=== PATIENT | female | born 2000 | race Caucasian/White ===

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

== ENCOUNTER → 2020-12-25 | Outpatient (CLI) | payer MEDICAID, OTHER ==
[~2020-12-25] MED LIST changes: -RABIES IMMUNE GLOBULIN 150 UNIT/ML 10 ML (HYPERRAB) IM ONE; -RABIES VACCINE HUMAN DIPL CELL 1 ML/2.5 UNITS SYR IM ONE; -RABIES VACCINE HUMAN DIPL CELL 1 ML/2.5 UNITS SYR INJ ONE; -RABIES VACCINE HUMAN DIPL CELL 1 ML/2.5 UNITS SYR ONE; -TETANUS,DIPTH,PERTUSS P/F (BOOSTRIX) 0.5 ML VIAL IM ONE
--- NOTE | 2020-12-25 14:36 | Diagnostic Imaging Report ---
EXAMINATION: Magnetic resonance imaging of the left shoulder without contrast. DATE: December 25, 2020. COMPARISON: None. HISTORY: 20-year-old female, left shoulder pain after injury. TECHNIQUE: Magnetic Resonance Imaging sequences were performed of the shoulder without contrast. FINDINGS: ROTATOR CUFF, LIGAMENTS, TENDONS, AND MUSCLES: The supraspinatus, infraspinatus, teres minor, and subscapularis tendons and muscles are intact. There is normal rotator cuff muscle bulk and signal. LONG HEAD OF BICEPS: The biceps labral attachment and long head of the biceps tendon is intact. The long head of the biceps tendon is normally positioned within the bicipital groove. GLENOHUMERAL JOINT: The humeral head is well positioned relative to the glenoid. The labrum is grossly intact. There is no identified paralabral cyst. The articular cartilage is grossly intact. There is no joint effusion. ACROMIOCLAVICULAR JOINT: The acromioclavicular joint is normally aligned. The coracoclavicular and coracoacromial ligaments are intact. There are no degenerative changes of the acromioclavicular joint. BONE: The bones all have normal configuration. The bone marrow signal is within normal limits. Specifically, negative for fracture, osteomyelitis, osteonecrosis, or marrow replacing process. BURSAE AND SOFT TISSUES: The bursae and soft tissue surrounding the shoulder are unremarkable. IMPRESSION: 1. Unremarkable MRI of the left shoulder. Dictated by: Dictated on workstation # [id number]
== END ==
LOC: RAD 11:00
PROVIDERS: ATTEND Family Medicine
DX: M25.512 Pain in left shoulder (principal)
CPT/HCPCS: 73221

== ENCOUNTER 2021-12-23 07:11 | Emergency (ER) | payer OTHER ==
[~2021-12-23] VITALS: Ht 160 cm; Wt 52.0 kg
[2021-12-23] MEDS ORDERED: LACTATED RINGERS 1,000 ML IV ONE (07:45)
[2021-12-23 07:48] LABS: BILIRUBIN,URINE NEGATIVE (NEGATIVE); CLARITY,URINE CLEAR; COLOR,URINE YELLOW; GLUCOSE, URINE (UA) NEGATIVE (NEGATIVE); KETONES,URINE NEGATIVE (NEGATIVE); LEUKOCYTE ESTERASE ,URINE 1+ (NEGATIVE); NITRITE,URINE NEGATIVE (NEGATIVE); PH,URINE 7.5 (5-9); PROTEIN,URINE 2+ (NEGATIVE)
--- NOTE | 2021-12-23 07:49 | ED Abdominal Pain ---
General Chief Complaint: Abdominal/GI Problems Stated Complaint: RIGHT SIDE PAIN Nursing Triage Note: PT CO OF R FLANK PAIN 6\\10. PT IS APPROX 16 WEEKS PER ULTRASOUND. PT HAS SOME NAUSEA. PT WAS + FOR MONO LAST WEEK BUT IS FEELING BETTER. Source of Information: Patient History of Present Illness Date Seen by Provider: Dec 23, 2021 Time Seen by Provider: 07:37 Initial Comments PT ARRIVES VIA POV FROM HOME C/O RIGHT SIDED ABDOMINAL PAIN AND RIGHT FLANK PAIN SINCE LAST NIGHT--PAIN IS WORST IN RIGHT FLANK AREA PAIN IS CONSTANT, RATES PAIN 6/10 WORSE WITH ANY MOVEMENT. NO INJURY OR UNUSUAL ACTIVITY HAS SOME PAIN/BURNING ON URINATION STATES URINE HAS BEEN VERY DARK--STATS "I DRINKS TONS AND TONS OF WATER" + NAUSEA, NO VOMITING NORMAL BM NO FEVER/SWEATS/CHILLS PT TESTED POSITIVE FOR MONO LAST THURSDAY AT [facility]. COVID TEST WAS NEGATIVE. PT IS 16 WEEKS HAD SEEN AN OB DR AT [facility], BUT IS PLANNING ON ESTABLISHING WITH DR. ASTORGA LOCALLY PT IS AB0 NO PROBLEMS WITH THIS . NO VAGINAL BLEEDING OR DISCHARGE PT HAS HAD PRIOR CHOLECYSTECTOMY PT STATES SHE HAS AN "OVERACTIVE THYROID"--"I CAN'T GAIN WEIGHT"--AND TAKES LEVOTHYROXINE. PCP: DR. SUMAYA CONTRERAS Allergies and Home Medications Allergies Coded Allergies: medroxyprogesterone (Verified Allergy, Unknown, 12/23/21) Penicillins (Verified Adverse Reaction, Mild, 02/17/12) Patient Home Medication List Trimethoprim/Sulfamethoxazole (Bactrim Ds) 1 Ea Tablet, 1 EA PO BID, (Reported) Entered as Reported by: ESTUARDO COX on 02/17/12 1640 [Naproxen] , (Reported) Entered as Reported by: ESTUARDO COX on 02/17/12 1638 Review of Systems Review of Systems Constitutional: no symptoms reported EENTM: See HPI Respiratory: No Symptoms Reported Cardiovascular: No Symptoms Reported Gastrointestinal: See HPI Genitourinary: See HPI Musculoskeletal: see HPI Skin: no symptoms reported Psychiatric/Neurological: No Symptoms Reported Endocrine: See HPI Hematologic/Lymphatic: No Symptoms Reported Past Iszvvbe-Iezfkz-Wksuax Hx Past Medical History Surgeries: Yes Gallbladder Respiratory: No Cardiac: No Neurological: No : Yes Genitourinary: No Gastrointestinal: Yes (S/P ERNESTINE) Gall Bladder Disease Musculoskeletal: No Endocrine: Yes (STATES SHE TAKES LEVOTHYROXIN FOR "OVERACTIVE THYROID" ) HEENT: No Cancer: No Psychosocial: Yes Depression Integumentary: No Blood Disorders: No Physical Exam Vital Signs Vital Signs - First Documented 12/23/21 07:30 Temp 36.0 Pulse 95 Resp 18 B/P (MAP) 99/67 (78) Pulse Ox 99 Capillary Refill : Less Than 3 Seconds Height/Weight/BMI Height: 5'4.00" Weight: 102lbs. 0.0oz. [id number]; 20.00 BMI Method:Stated General Appearance: no apparent distress, thin Respiratory: normal breath sounds, no respiratory distress, no accessory muscle use Cardiovascular: regular rate, rhythm, no murmur Gastrointestinal: soft, other (FUNDUS 4 FB'S BELOW UMBILICUS. MODERATE DIFFUSE RIGHT SIDED ABDOMINAL TENDERNESS, WITH MARKED RIGHT FLANK TENDERNESS. FUNDUS IS NON-TENDER. ) Extremities: normal inspection, normal capillary refill Back: no vertebral tenderness, CVA tenderness (R) Neurologic/Psychiatric: snout puller II-XII nml as tested, no motor/sensory deficits, alert, normal mood/affect, oriented x 3 Skin: warm/dry, pallor, tattoos/piercings (EXTENSIVE TATTOOS) Progress/Results/Core Measures Results/Orders Lab Results Laboratory Tests Test 12/23/21 07:35 12/23/21 07:45 Range/Units Urine Color YELLOW Urine Clarity CLEAR Urine pH 7.5 5-9 Urine Specific [place] 1.020 1.016-1.022 Urine Protein 2+ H NEGATIVE Urine Glucose (UA) NEGATIVE NEGATIVE Urine Ketones NEGATIVE NEGATIVE Urine Nitrite NEGATIVE NEGATIVE Urine Bilirubin NEGATIVE NEGATIVE Urine Urobilinogen 0.2 < = 1.0 MG/DL Urine Leukocyte Esterase 1+ H NEGATIVE Urine RBC (Auto) 3+ H NEGATIVE Urine RBC 25-50 H /HPF Urine WBC 25-50 H /HPF Urine Squamous Epithelial Cells 0-2 /HPF Urine Crystals NONE /LPF Urine Bacteria LARGE H /HPF Urine Casts NONE /LPF Urine Mucus NEGATIVE /LPF Urine Culture Indicated YES White Blood Count 9.9 4.3-11.0 10^3/uL Red Blood Count 3.87 3.80-5.11 10^6/uL Hemoglobin 12.3 11.5-16.0 g/dL Hematocrit 36 35-52 % Mean Corpuscular Volume 92 80-99 fL Mean Corpuscular Hemoglobin 32 25-34 pg Mean Corpuscular Hemoglobin Concent 35 32-36 g/dL Red Cell Distribution Width 13.2 10.0-14.5 % Platelet Count 232 130-400 10^3/uL Mean Platelet Volume 10.0 9.0-12.2 fL Immature Granulocyte % (Auto) 1 % Neutrophils (%) (Auto) 82 H 42-75 % Lymphocytes (%) (Auto) 11 L 12-44 % Monocytes (%) (Auto) 5 0-12 % Eosinophils (%) (Auto) 1 0-10 % Basophils (%) (Auto) 0 0-10 % Neutrophils # (Auto) 8.2 H 1.8-7.8 10^3/uL Lymphocytes # (Auto) 1.1 1.0-4.0 10^3/uL Monocytes # (Auto) 0.5 0.0-1.0 10^3/uL Eosinophils # (Auto) 0.1 0.0-0.3 10^3/uL Basophils # (Auto) 0.0 0.0-0.1 10^3/uL Immature Granulocyte # (Auto) 0.1 0.0-0.1 10^3/uL Prothrombin Time 13.0 12.2-14.7 SEC INR Comment 0.9 0.8-1.4 Activated Partial Thromboplast Time 28 24-35 SEC Sodium Level 135 135-145 MMOL/L Potassium Level 3.8 3.6-5.0 MMOL/L Chloride Level 105 98-107 MMOL/L Carbon Dioxide Level 21 21-32 MMOL/L Anion Gap 9 5-14 MMOL/L Blood Urea Nitrogen 7 7-18 MG/DL Creatinine 0.63 0.60-1.30 MG/DL Estimat Glomerular Filtration Rate 128 BUN/Creatinine Ratio 11 Glucose Level 85 70-105 MG/DL Calcium Level 8.8 8.5-10.1 MG/DL Corrected Calcium 8.9 8.5-10.1 MG/DL Magnesium Level 1.9 1.6-2.4 MG/DL Total Bilirubin 0.3 0.1-1.0 MG/DL Aspartate Amino Transf (AST/SGOT) 17 5-34 U/L Alanine Aminotransferase (ALT/SGPT) 19 0-55 U/L Alkaline Phosphatase 46 40-136 U/L Total Protein 6.8 6.4-8.2 GM/DL Albumin 3.9 3.2-4.5 GM/DL Amylase Level 66 25-125 U/L Lipase 11 8-78 U/L Free Thyroxine 0.81 0.70-1.48 NG/DL TSH [place] Testing 9.56 H 0.35-4.94 UIU/ML My Orders Orders - CARSON MORA DO Ed Iv/Invasive Line Start (12/23/21 07:37) Ua Culture If Indicated (12/23/21 07:37) Amylase (12/23/21 07:37) Cbc With Automated Diff (12/23/21 07:37) Comprehensive Metabolic Panel (12/23/21 07:37) Lipase (12/23/21 07:37) Magnesium (12/23/21 07:37) Protime With Inr (12/23/21 07:37) Partial Thromboplastin Time (12/23/21 07:37) Ed Iv/Invasive Line Start (12/23/21 07:37) Lactated Ringers (Lr 1000 Ml Iv Solution (12/23/21 07:45) Heart Tones (12/23/21 07:43) Thyroid Analyzer (12/23/21 07:49) Urine Culture (12/23/21 07:35) Us Abdomen Complete [id number] (12/23/21 08:10) Us Ob Preg Late(14-40wks)51985 (12/23/21 08:10) Ceftriaxone 1 Gm Pre-Mix (Rocephin 1 Gm (12/23/21 08:17) Free T4 (Free Thyroxine) (12/23/21 07:45) Medications Given in ED Current Medications Medications Dose Ordered Sig/Ilsa Route Start Time Stop Time Status Last Admin Dose Admin Lactated Ringer's 1,000 ml @ 0 mls/hr Q0M ONCE IV 12/23/21 07:45 12/23/21 07:46 DC 12/23/21 08:20 1,000 MLS/HR Vital Signs/I&O 12/23/21 07:30 Temp 36.0 Pulse 95 Resp 18 B/P (MAP) 99/67 (78) Pulse Ox 99 Blood Pressure Mean: 78 Progress Progress Note : Progress Note FHR 160 GIVEN IV FLUIDS AND ROCEPHIN Diagnostic Imaging Comments ULTRASOUNDS--PER RADIOLOGIST REPORTS AT 0958 ABDOMEN: FINDINGS: Liver is normal in size without focal lesions. There is hepatopetal flow in main portal vein. Gallbladder surgically absent. There are no focal liver lesions. No biliary duct dilatation. Common bile duct measures 3 mm. Pancreas is unremarkable. Spleen is normal in size. Aorta is nonaneurysmal. IVC patent. There is some questionable mild right hydronephrosis. Left kidney is normal. No ascites. IMPRESSION: Questionable mild right hydronephrosis, otherwise unremarkable abdominal ultrasound status post cholecystectomy. OB:FINDINGS: There is a single living intrauterine in transverse presentation with head to maternal left. Biometrics correlate to gestational age of 15 weeks 4 days. There is normal volume amniotic fluid. Placenta is anterior and low-lying. No previa. Heart rate 153 bpm. Cervical length 4.1 cm. IMPRESSION: Single living intrauterine with a sonographically estimated gestational age 15 weeks 4 days and transverse presentation with head to maternal left. Normal heart rate and volume of amniotic fluid. Biometrical measurements are as follows: Biparietal 3.08 cm, age 15 weeks 5 days. Head circumference 11.35 cm, age 15 weeks 4 days. Abdominal circumference 9.16 cm, age 15 weeks 3 days. Femur length 1.79 cm, age 15 weeks 3 days. Sonographic estimate age: 15 weeks 4 days. Sonographic estimated date of delivery: 06/12/2022. Estimated Weight: 122 gm (+/- 18 gm). LMP percentile: 10%. heart rate: 153 beats per minute. number: 1 of 1. Reviewed: Reviewed by Me Departure Impression Primary Impression: Urinary tract infection Additional Impression: 16 weeks gestation of Disposition: 01 HOME, SELF-CARE Condition: Stable Departure-Patient Inst. Decision time for Depature: 09:59 Referrals: HILLARY ASTORGA CHAD C MD (PCP/Family) Primary Care Physician Patient Instructions: Urinary Tract Infections in Add. Discharge Instructions: LOTS OF CLEAR LIQUIDS TYLENOL NEEDED FOR PAIN OR FEVER FOLLOW UP WITH DR. ASTORGA THIS WEEK FOR FURTHER CARE, RETURN TO ER IF SYMPTOMS WORSEN All discharge instructions reviewed with patient and/or family. Voiced understanding. Scripts Cefdinir (Cefdinir) 300 Mg Capsule 300 MG PO BID, #20 CAP Prov: CARSON MORA DO 12/23/21 CARSON MORA DO Dec 23, 2021 07:49
[2021-12-23 08:02] LABS: BASOPHILS % (AUTO) 0 % (0-10); EOSINOPHILS # (AUTO) 0.1 10^3/uL (0.0-0.3); EOSINOPHILS % (AUTO) 1 % (0-10); HEMATOCRIT 36 % (35-52); HEMOGLOBIN 12.3 g/dL (11.5-16.0); LYMPHOCYTES # (AUTO) 1.1 10^3/uL (1.0-4.0); LYMPHOCYTES % (AUTO) 11 % (12-44); MEAN CORPUSCULAR HEMOGLOBIN 32 pg (25-34); MEAN CORPUSCULAR HGB CONC 35 g/dL (32-36); MEAN CORPUSCULAR VOLUME 92 fL (80-99); MONOCYTES # (AUTO) 0.5 10^3/uL (0.0-1.0); MONOCYTES % (AUTO) 5 % (0-12); NEUTROPHILS # (AUTO) 8.2 10^3/uL (1.8-7.8); NEUTROPHILS % (AUTO) 82 % (42-75); PLATELET COUNT 232 10^3/uL (130-400); WHITE BLOOD COUNT 9.9 10^3/uL (4.3-11.0)
[2021-12-23 08:07] LABS: ALBUMIN 3.9 GM/DL (3.2-4.5); POTASSIUM 3.8 MMOL/L (3.6-5.0)
[2021-12-23 08:08] LABS: CALCIUM 8.8 MG/DL (8.5-10.1)
[2021-12-23 08:09] LABS: BACTERIA,URINE LARGE /HPF; RBC,URINE 25-50 /HPF; SQUAMOUS EPITHELIAL CELL,UR 0-2 /HPF; WBC,URINE 25-50 /HPF
[2021-12-23 08:09] LABS: TOTAL PROTEIN 6.8 GM/DL (6.4-8.2)
[2021-12-23 08:11] LABS: BILIRUBIN,TOTAL 0.3 MG/DL (0.1-1.0)
[2021-12-23 08:13] LABS: CREATININE SERUM 0.63 MG/DL (0.60-1.30)
[2021-12-23 08:16] LABS: MAGNESIUM 1.9 MG/DL (1.6-2.4)
[2021-12-23] MEDS ORDERED: cefTRIAXone 1 GM PRE-MIX 50 ML IV STA (08:17)
[2021-12-23 08:24] LABS: INR 0.9 (0.8-1.4)
[2021-12-23 08:37] LABS: TSH (THYROID ANALYZER) 9.56 UIU/ML (0.35-4.94)
[2021-12-23 09:22] LABS: FREE T4 (FREE THYROXINE) 0.81 NG/DL (0.70-1.48)
--- NOTE | 2021-12-23 09:41 | Diagnostic Imaging Report ---
INDICATION: Abdominal pain TECHNIQUE: Multiple real-time grayscale images were obtained over the gravid uterus. COMPARISON: None FINDINGS: There is a single living intrauterine in transverse presentation with head to maternal left. Biometrics correlate to gestational age of 15 weeks 4 days. There is normal volume amniotic fluid. Placenta is anterior and low-lying. No previa. Heart rate 153 bpm. Cervical length 4.1 cm. IMPRESSION: Single living intrauterine with a sonographically estimated gestational age 15 weeks 4 days and transverse presentation with head to maternal left. Normal heart rate and volume of amniotic fluid. Biometrical measurements are as follows: Biparietal 3.08 cm, age 15 weeks 5 days. Head circumference 11.35 cm, age 15 weeks 4 days. Abdominal circumference 9.16 cm, age 15 weeks 3 days. Femur length 1.79 cm, age 15 weeks 3 days. Sonographic estimate age: 15 weeks 4 days. Sonographic estimated date of delivery: 06/12/2022. Estimated Weight: 122 gm (+/- 18 gm). LMP percentile: 10%. heart rate: 153 beats per minute. number: 1 of 1. Dictated by: Dictated on workstation # [id number]
--- NOTE | 2021-12-23 09:44 | Diagnostic Imaging Report ---
INDICATION: PROCEDURE: Ultrasound abdomen complete. TECHNIQUE: Multiple real-time grayscale images were obtained of the abdomen in various projections. FINDINGS: Liver is normal in size without focal lesions. There is hepatopetal flow in main portal vein. Gallbladder surgically absent. There are no focal liver lesions. No biliary duct dilatation. Common bile duct measures 3 mm. Pancreas is unremarkable. Spleen is normal in size. Aorta is nonaneurysmal. IVC patent. There is some questionable mild right hydronephrosis. Left kidney is normal. No ascites. IMPRESSION: Questionable mild right hydronephrosis, otherwise unremarkable abdominal ultrasound status post cholecystectomy. Dictated by: Dictated on workstation # [id number]
[2021-12-23] MEDS ORDERED: CEFD300C3 PO (10:02)
[2021-12-23 10:34] VITALS: BP 108/64
== END 2021-12-23 10:34 | disposition home or self-care (01) ==
LOC: EDUNIT# 07:11 → ER 07:14
DX: O23.42 Unspecified infection of urinary tract in pregnancy, second trimester (principal); Z90.49 Acquired absence of other specified parts of digestive tract; Z3A.16 16 weeks gestation of pregnancy
CPT/HCPCS: 36415; 76700; 76805; 80053; 81000; 82150; 83690; 83735; 84439; 84443; 85025; 85610; 85730; 87077; 87088

== ENCOUNTER → 2022-01-21 | Outpatient (CLI) | payer OTHER ==
[~2022-01-21] MED LIST changes: +CEFD300C3 PO
--- NOTE | 2022-01-21 11:56 | Diagnostic Imaging Report ---
INDICATION: survey TECHNIQUE: Multiple real-time grayscale images were obtained over the gravid uterus. COMPARISON: None FINDINGS: There is a single live intrauterine fetus currently breech and active. The heart rate of 144 bpm. The placenta is anterior and not low. The amniotic fluid index is normal. Maternal cervical length is 4.3 cm. anatomical survey was normal including structures of kidneys, bladder, stomach, ventricles, brain, four-chamber heart, three-vessel cord, spine and cord insertion. The maternal adnexa was normal. Biometrical measurements are as follows: Biparietal 4.41 cm, age 19 weeks 3 days. Head circumference 16.56 cm, age 19 weeks 2 days. Abdominal circumference 13.52 cm, age 19 weeks 0 days. Femur length 3.03 cm, age 19 weeks 3 days. Sonographic estimate age: 19 weeks 2 days. Sonographic estimated date of delivery: 06/15/2022. Estimated Weight: 278 gm (+/- 41 gm). LMP percentile: 4%. heart rate: 144 beats per minute. number: 1 of 1. IMPRESSION: There is a single live intrauterine fetus currently average biometric measurements for 19 week 2 days with estimated date of delivery of 06/15/2022. No abnormalities were demonstrated. Dictated by: Dictated on workstation # [id number]
== END ==
LOC: RAD 09:43
PROVIDERS: ATTEND Obstetrics & Gynecology
DX: Z34.02 Encounter for supervision of normal first pregnancy, second trimester (principal); Z3A.19 19 weeks gestation of pregnancy
CPT/HCPCS: 76805

== ENCOUNTER 2022-06-07 17:14 | Inpatient (IN) | payer MEDICAID, OTHER ==
[2022-06-07] VITALS (30 sets, daily range): BP systolic 80–142; BP diastolic 52–76
[~2022-06-07] VITALS: Ht 160 cm; Wt 61.0 kg
[2022-06-07] MEDS ORDERED: fentaNYL 2 mcg/ml BUPIVA 0.125 100 ML ONE (17:37)
[2022-06-07] MEDS ORDERED: LACTATED RINGERS 1,000 ML IV ONE ×3 (17:37→19:00)
[2022-06-07 17:43] LABS: BASOPHILS % (AUTO) 0 % (0-10); EOSINOPHILS # (AUTO) 0.1 10^3/uL (0.0-0.3); EOSINOPHILS % (AUTO) 1 % (0-10); HEMATOCRIT 39 % (35-52); HEMOGLOBIN 13.4 g/dL (11.5-16.0); LYMPHOCYTES # (AUTO) 1.7 10^3/uL (1.0-4.0); LYMPHOCYTES % (AUTO) 20 % (12-44); MEAN CORPUSCULAR HEMOGLOBIN 31 pg (25-34); MEAN CORPUSCULAR HGB CONC 34 g/dL (32-36); MEAN CORPUSCULAR VOLUME 92 fL (80-99); MEAN PLATELET VOLUME 11.8 fL (9.0-12.2); MONOCYTES # (AUTO) 0.7 10^3/uL (0.0-1.0); MONOCYTES % (AUTO) 9 % (0-12); NEUTROPHILS # (AUTO) 6.1 10^3/uL (1.8-7.8); NEUTROPHILS % (AUTO) 70 % (42-75); PLATELET COUNT 204 10^3/uL (130-400); WHITE BLOOD COUNT 8.7 10^3/uL (4.3-11.0)
[2022-06-07] MEDS ORDERED: MINERAL OIL 30 ML UDC TOP PRN (17:45)
[2022-06-07] MEDS ORDERED: fentaNYL INJ 100 MCG/2 ML AMP ONE (18:04)
[2022-06-07] MEDS ORDERED: BUPIVACAINE 0.25% 30 ML (SENSORCAINE) VIAL ONE (18:04)
[2022-06-07] MEDS ORDERED: LIDOCAINE 1% INJ 20 ML VIAL ONE (18:08)
[2022-06-07] MEDS ORDERED: OXYTOCIN PRE-MIX DRIP 500 ML IV ONE (18:08)
[2022-06-07] MEDS: D5 LR IV SOLUTION 1,000 ML IV SCH (18:18)
[2022-06-07] MEDS ORDERED: LIDOCAINE PF 2% 5 ML (XYLOCAINE) VIAL ONE (18:35)
[2022-06-07] MEDS ORDERED: NALOXONE 0.4 MG/ML 1 ML (NARCAN) VIAL IV PRN (19:00)
[2022-06-07] MEDS ORDERED: ONDANSETRON 4 MG/2 ML (SDV) Z0FRAN IV PRN (19:00)
[2022-06-07] MEDS ORDERED: fentaNYL 2 mcg/ml BUPIVA 0.125 100 ML EPI SCH (19:00)
[2022-06-07] MEDS ORDERED: fentaNYL INJ 100 MCG/2 ML AMP INJ ONE (19:00)
[2022-06-07] MEDS ORDERED: CATHETER FLUSH 10 ML SYR IV SCH (22:00)
[2022-06-07] MEDS ORDERED: OXYTOCIN PRE-MIX DRIP 500 ML IV SCH (23:15)
[2022-06-07] MEDS ORDERED: BENZOCAINE/MENTHOL (DERMOPLAST) 56 ML CAN TP PRN (23:15)
[2022-06-07] MEDS ORDERED: METHYLERGONOVINE 0.2 MG/ML (METHERGINE) AMP IM PRN (23:15)
[2022-06-07] MEDS ORDERED: WITCH HAZEL(TUCKS) 40 EA JAR TOP PRN (23:15)
[2022-06-07] MEDS ORDERED: TETANUS,DIPTH,PERTUSS P/F (BOOSTRIX) 0.5 ML VIAL IM ONE (23:15)
[2022-06-07] MEDS ORDERED: METHYLERGONOVINE 0.2 MG/ML (METHERGINE) AMP ONE (23:18)
--- NOTE | 2022-06-07 23:25 | History & Physical-OB ---
OB - Chief Complaint & HPI Date/Time Date of Admission: Date of Admission: Jun 07, 2022 at 17:45 Time Seen by a Provider: 22:00 Chief Complaint/History OB-Reason for Admission/Chief: Onset of Labor Hx : 1 Hx Para: 0 Expected Date of Delivery: Jun 12, 2022 Gestational Age in Weeks: 39 Gestational Age in Days: 2 History of Labs MBT O Pos GBS Neg Allergies and Home Medications Allergies Coded Allergies: hydrocodone (Verified Allergy, Unknown, 06/07/22) medroxyprogesterone (Verified Allergy, Unknown, 12/23/21) Penicillins (Verified Adverse Reaction, Mild, 02/17/12) Patient Home Medication List Home Medication List Reviewed: Yes Cefdinir (Cefdinir) 300 Mg Capsule, 300 MG PO BID Prescribed by: CARSON MORA on 12/23/21 1002 Trimethoprim/Sulfamethoxazole (Bactrim Ds) 1 Ea Tablet, 1 EA PO BID, (Reported) Entered as Reported by: ESTUARDO COX on 02/17/12 1640 [Naproxen] , (Reported) Entered as Reported by: ESTUARDO COX on 02/17/12 1638 OB - History Hx of Present Care: Yes Ultrasounds: Normal mid trimester US Obstetrical Complications: None Medical Complications: Other (Hypothyroid) Information Induced Hypertension: No Maternal Gestational Diabetes: No Hemorrhage: No Obstetrical History Hx : 1 Delivery History Hx Blood Disorders: No Patient Past Medical History Hypothyroid Hypothyroid Social History/Family History Alcohol Use: Denies Use Smoking Cessation: Never smoker Immunizations Influenza Vaccine Up-to-Date: No; Not Current OB - Admission Exam Physical Exam Vitals: Vital Signs 06/07/22 06/07/22 06/07/22 17:20 19:16 19:36 Temp 36.2 Pulse 68 Resp 18 B/P (MAP) 113/73 (86) Pulse Ox 100 O2 Delivery Room Air O2 Flow Rate 15.00 HEENT: EOMI Heart: Rhythm Normal Lungs: Clear Abdomen: Non tender Extremities: Normal Reflexes: Normal Cervical Dilatation: 5cm Effacement: 75% Station: -2 Membranes: Intact Heart Rate: 140's Accelerations: Accelerations Present Decelerations: Late Decelarations (x1) Content Creation Manager Variability: Average (6-25) Contractions on Admission: < 5 Minutes Apart Labs Laboratory Tests Test 06/07/22 17:25 Range/Units White Blood Count 8.7 4.3-11.0 10^3/uL Red Blood Count 4.28 3.80-5.11 10^6/uL Hemoglobin 13.4 11.5-16.0 g/dL Hematocrit 39 35-52 % Mean Corpuscular Volume 92 80-99 fL Mean Corpuscular Hemoglobin 31 25-34 pg Mean Corpuscular Hemoglobin Concent 34 32-36 g/dL Red Cell Distribution Width 13.5 10.0-14.5 % Platelet Count 204 130-400 10^3/uL Mean Platelet Volume 11.8 9.0-12.2 fL Immature Granulocyte % (Auto) 1 % Neutrophils (%) (Auto) 70 42-75 % Lymphocytes (%) (Auto) 20 12-44 % Monocytes (%) (Auto) 9 0-12 % Eosinophils (%) (Auto) 1 0-10 % Basophils (%) (Auto) 0 0-10 % Neutrophils # (Auto) 6.1 1.8-7.8 10^3/uL Lymphocytes # (Auto) 1.7 1.0-4.0 10^3/uL Monocytes # (Auto) 0.7 0.0-1.0 10^3/uL Eosinophils # (Auto) 0.1 0.0-0.3 10^3/uL Basophils # (Auto) 0.0 0.0-0.1 10^3/uL Immature Granulocyte # (Auto) 0.1 0.0-0.1 10^3/uL OB - Assessment/Plan/Diagnosis Assessment Assessment: active labor, group B positive strep (neg) Admission Dx Term Labor Admission Status: Inpatient Order (span 2 midnights) Reason for Inpatient Admission: Active Labor Plan Plan: Expectant Management LUIS ENRIQUE MAX III, DO Jun 07, 2022 23:25
[2022-06-07] MEDS ORDERED: METHYLERGONOVINE 0.2 MG/ML (METHERGINE) AMP IM ONE (23:30)
--- NOTE | 2022-06-07 23:32 | OB Labor & Delivery Record ---
L&D History Date of Service Date of Service: Jun 07, 2022 History Expected Date of Delivery: Jun 12, 2022 Gestational Age in Weeks: 39 Hx : 1 Hx Para: 0 Complications Events: Routine care Other Complications Bradycardia in second stage L&D Stage1 Stage One Onset of Labor - Date: Jun 07, 2022 Monitors and Tracing Monitor Mode: External Heart Rate: 125 Station: 0 Halfway Variability: Moderate (11-25) Presentation: Vertex Vital Signs VS - Last 72 Hours, by Label 06/07/22 06/07/22 06/07/22 06/07/22 17:20 19:02 19:04 19:08 Temp 36.2 Pulse 73 65 65 48 Resp 20 18 B/P (MAP) 80/53 (62) 91/53 (66) Pulse Ox 91 100 98 O2 Delivery Room Air Room Air Non Rebreather O2 Flow Rate 15.00 06/07/22 06/07/22 06/07/22 06/07/22 19:10 19:12 19:16 19:22 Pulse 82 60 62 87 Resp 18 18 18 18 B/P (MAP) 90/52 (65) 101/62 (75) 121/73 (89) 115/65 (82) Pulse Ox 100 100 99 100 O2 Delivery Non Rebreather Non Rebreather Non Rebreather Room Air O2 Flow Rate 15.00 15.00 15.00 06/07/22 06/07/22 06/07/22 19:28 19:31 19:36 Pulse 74 75 68 Resp 18 18 18 B/P (MAP) 106/68 (81) 106/67 (80) 113/73 (86) Pulse Ox 100 100 100 O2 Delivery Room Air Room Air Room Air Signs of Distress by FHT Signs of Distress FHT to 80's and 90's in 2nd stage and persisted Rupture of Membranes Amniotic Membrane Rupture Time: 22:15 Amniotic Membrane Fluid Desc.: Clear Induction/Anesthesia Epidural Cath Placement - Time: 1815 L&D Stage2 Monitors and Tracing Monitor Mode: External Heart Rate: 125 Position: Left Occiput Anterior Delivery Type Infant Delivery Method: Low Vacuum Extraction Anterior Shoulder: Right Episiotomy/Perineal Laceration Episiotomy Description: Periurethral Extnsion/lac (Window R Labia minora), Perineal Extension/lac (1st) Sutures Used: Vicryl (4-0) Condition of Infant Delivery Delivery Date & Time: 06/07 2236 1 minute Comment: 8 5 minute Comment: 9 Condition of Infant Condition of Infant: Living Exam: No Observed Abnormalities L&D Stage3 Placenta Delivery Placenta Delivery: Spontaneous Delivery Summary Summary Estimated blood loss (mL): 400 Condition of Delivery Intervention Required Methergine given for 5cm clot x2 LUIS ENRIQUE MAX III, DO Jun 07, 2022 23:32
[2022-06-08] VITALS (7 sets, daily range): BP systolic 82–112; BP diastolic 46–73
[2022-06-08] MEDS: ACETAMINOPHEN 500 MG TAB (TYLENOL) PO SCH ×4 (01:03→20:31)
[2022-06-08] MEDS: IBUPROFEN 600 MG (MOTRIN) TAB PO SCH ×4 (01:04→20:32)
[2022-06-08] MEDS: D5 LR IV SOLUTION 1,000 ML IV SCH (05:52)
[2022-06-08] MEDS ORDERED: CATHETER FLUSH 10 ML SYR IV SCH (06:00)
[2022-06-08 06:38] LABS: BASOPHILS % (AUTO) 0 % (0-10); EOSINOPHILS % (AUTO) 0 % (0-10); HEMATOCRIT 31 % (35-52); HEMOGLOBIN 10.3 g/dL (11.5-16.0); LYMPHOCYTES # (AUTO) 1.2 10^3/uL (1.0-4.0); LYMPHOCYTES % (AUTO) 12 % (12-44); MEAN CORPUSCULAR HEMOGLOBIN 31 pg (25-34); MEAN CORPUSCULAR HGB CONC 34 g/dL (32-36); MEAN CORPUSCULAR VOLUME 92 fL (80-99); MEAN PLATELET VOLUME 11.9 fL (9.0-12.2); MONOCYTES # (AUTO) 0.8 10^3/uL (0.0-1.0); MONOCYTES % (AUTO) 8 % (0-12); NEUTROPHILS % (AUTO) 79 % (42-75); PLATELET COUNT 156 10^3/uL (130-400)
[2022-06-08] MEDS ORDERED: PRENATAL VITAMIN 1 EA TAB PO SCH (07:00)
[2022-06-08] MEDS: DOCUSATE SODIUM 100 MG (COLACE) CAP PO SCH ×2 (08:21→20:32)
--- NOTE | 2022-06-08 10:06 | Postpartum Progress Note ---
Note Note Day # [1] Subjective: Patient is without complaint. Ambulating, voiding. Tolerating a regular diet without nausea or vomiting. Normal lochia. Pain is well controlled with oral pain medications. [Breast] feeding. [] Objective: [VSS Afebrile] Physical Exam: General - Alert and oriented, no apparent distress Abdomen - Soft, appropriately tender to palpation, non-distended, fundus firm at umbilicus Extremities - no edema, negative Laura's bilaterally Assessment: [] post- day # [1], status post [vacuum assisted] vaginal delivery. Recovering well, hemodynamically stable Plan: Routine care. Encourage breast feeding. Encourage ambulation. Plan for discharge [tomorrow] Vitals - Labs Vital Signs - I&O Vital Signs Date Time Temp Pulse Resp B/P (MAP) Pulse Ox O2 Delivery O2 Flow Rate FiO2 06/08/22 08:21 36.9 88 18 102/59 (73) 98 Room Air 06/08/22 05:50 36.3 87 18 82/46 (58) 97 Room Air 06/08/22 01:13 36.7 99 18 109/71 (84) 99 Room Air 06/08/22 00:22 86 18 112/73 (86) Room Air 06/08/22 00:07 76 18 112/68 (83) Room Air 06/07/22 23:52 89 18 112/72 (85) Room Air 06/07/22 23:37 84 18 116/65 (82) Room Air 06/07/22 23:25 84 18 112/61 (78) Room Air 06/07/22 23:22 86 18 120/63 (82) Room Air 06/07/22 23:14 102 18 118/57 (77) Room Air 06/07/22 23:07 91 18 112/63 (79) Room Air 06/07/22 22:52 99 18 113/63 (80) Room Air 06/07/22 22:47 98 18 110/61 (77) Room Air 06/07/22 22:10 97 18 119/71 (87) 99 Room Air 06/07/22 21:55 84 18 114/71 (85) 99 Room Air 06/07/22 21:40 78 18 110/71 (84) 99 Room Air 06/07/22 21:23 36.5 81 18 114/73 (87) 99 Room Air 06/07/22 21:18 79 18 107/70 (82) 99 Room Air 06/07/22 21:13 81 18 103/67 (79) 100 Room Air 06/07/22 21:10 81 18 111/70 (84) 100 Room Air 06/07/22 21:03 82 18 116/70 (85) 99 Room Air 06/07/22 20:58 91 18 116/70 (85) 100 Room Air 06/07/22 20:53 93 18 114/67 (83) 100 Room Air 06/07/22 20:48 86 18 107/63 (78) 100 Room Air 06/07/22 20:43 76 18 117/76 (90) 100 Room Air 06/07/22 19:36 68 18 113/73 (86) 100 Room Air 06/07/22 19:31 75 18 106/67 (80) 100 Room Air 06/07/22 19:28 74 18 106/68 (81) 100 Room Air 06/07/22 19:22 87 18 115/65 (82) 100 Room Air 06/07/22 19:16 62 18 121/73 (89) 99 Non Rebreather 15.00 06/07/22 19:12 60 18 101/62 (75) 100 Non Rebreather 15.00 06/07/22 19:10 82 18 90/52 (65) 100 Non Rebreather 15.00 06/07/22 19:08 48 98 Non Rebreather 15.00 06/07/22 19:04 65 91/53 (66) 06/07/22 19:02 65 18 80/53 (62) 100 Room Air 06/07/22 17:20 36.2 73 20 91 Room Air Labs Laboratory Tests 06/07/22 17:25: White Blood Count 8.7, Red Blood Count 4.28, Hemoglobin 13.4, Hematocrit 39, Mean Corpuscular Volume 92, Mean Corpuscular Hemoglobin 31, Mean Corpuscular Hemoglobin Concent 34, Red Cell Distribution Width 13.5, Platelet Count 204, Mean Platelet Volume 11.8, Immature Granulocyte % (Auto) 1, Neutrophils (%) (Auto) 70, Lymphocytes (%) (Auto) 20, Monocytes (%) (Auto) 9, Eosinophils (%) (Auto) 1, Basophils (%) (Auto) 0, Neutrophils # (Auto) 6.1, Lymphocytes # (Auto) 1.7, Monocytes # (Auto) 0.7, Eosinophils # (Auto) 0.1, Basophils # (Auto) 0.0, Immature Granulocyte # (Auto) 0.1 06/08/22 06:03: White Blood Count 10.0, Red Blood Count 3.33L, Hemoglobin 10.3#L, Hematocrit 31L , Mean Corpuscular Volume 92, Mean Corpuscular Hemoglobin 31, Mean Corpuscular Hemoglobin Concent 34, Red Cell Distribution Width 13.6, Platelet Count 156, Mean Platelet Volume 11.9, Immature Granulocyte % (Auto) 0, Neutrophils (%) (Auto) 79H, Lymphocytes (%) (Auto) 12, Monocytes (%) (Auto) 8, Eosinophils (%) (Auto) 0, Basophils (%) (Auto) 0, Neutrophils # (Auto) 8.0H, Lymphocytes # (Auto) 1.2, Monocytes # (Auto) 0.8, Eosinophils # (Auto) 0.0, Basophils # (Auto) 0.0, Immature Granulocyte # (Auto) 0.0 LUIS ENRIQUE MAX III, DO Jun 08, 2022 10:06
[2022-06-09 02:33] VITALS: BP 103/59
[2022-06-09] MEDS: IBUPROFEN 600 MG (MOTRIN) TAB PO SCH ×2 (02:33→08:33)
[2022-06-09] MEDS: ACETAMINOPHEN 500 MG TAB (TYLENOL) PO SCH ×2 (02:33→08:33)
[2022-06-09] MEDS ORDERED: SIMETHICONE 80 MG (MYLICON) CHEW PO ONE (03:00)
[2022-06-09] MEDS ORDERED: Naproxen PO (07:18)
--- NOTE | 2022-06-09 07:24 | Short Stay Summary ---
Discharge Summary Hospital Course Was the Problem List Reviewed?: Yes Final Diagnosis: Term Delivery Hospital Course Date of Admission: Jun 07, 2022 at 17:45 Admission Diagnosis : Family Physician/Provider: Tommy Ashraf MD Date of Discharge: 06/09/22 Discharge Diagnosis: [ ] Hospital Course: [ ] Labs and Pending Lab Test: Home Meds Active [Naproxen] 500 Tab 1 PO Q12H PRN MDD 2 14 Days Assessment/Pt Instructions Normal Post- course Discharge Instructions Activity as Tolerated: Yes Discharge Physical Examination General Appearance: Alert, Oriented X3 HEENT: Atraumatic, PERRLA, EOMI Respiratory: Normal Air Movement Cardiovascular: Regular Rate Abdominal: Soft, No Tenderness Extremities: No Edema Allergies: Coded Allergies: hydrocodone (Verified Allergy, Unknown, 06/07/22) medroxyprogesterone (Verified Allergy, Unknown, 12/23/21) Penicillins (Verified Adverse Reaction, Mild, 02/17/12) Discharge Summary Date of Admission Jun 07, 2022 at 17:45 Date of Discharge 06/09/2022 Discharge Date: Jun 09, 2022 Admission Diagnosis Term Labor LUIS ENRIQUE MAX III, DO Jun 09, 2022 07:24
[2022-06-09 08:30] VITALS: BP 101/55
[2022-06-09] MEDS: DOCUSATE SODIUM 100 MG (COLACE) CAP PO SCH (08:32)
--- NOTE | 2022-06-09 13:43 | Anesthesia-Regional Post-Op ---
Regional Patient Condition Mental Status: Alert, Oriented x3 Circulation: Same as Pre-Op Headache: Absent Sensation: Full Recovery Motor Block: Absent Post Op Complications Complications None Follow Up Care/Instructions Patient Instructions None needed. Anesthesia/Patient Condition Patient was doing well this morning. She had no complaints other than a sore low back, which is to be expected after an epidural. She had stable vital signs, no apparent adverse anesthesia problems. No complications reported per nursing. JOHN MIR DO Jun 09, 2022 13:43
[2022-06-09 13:55] VITALS: BP 101/55
== END 2022-06-09 13:55 | disposition home or self-care (01) | DRG 807 ==
LOC: WSo 17:14 → LDRP 17:15 → WSo 17:44 → LDRP 17:45
PROVIDERS: ADMIT Obstetrics & Gynecology; ATTEND Obstetrics & Gynecology
PROC: 10D07Z6 Extraction of Products of Conception, Vacuum, Via Natural or Artificial Opening (ICD-10-PCS; principal; 2022-06-07)
PROC: 0HQ9XZZ Repair Perineum Skin, External Approach (ICD-10-PCS; 2022-06-07)
PROC: 0UQMXZZ Repair Vulva, External Approach (ICD-10-PCS; 2022-06-07)
DX: O99.284 Endocrine, nutritional and metabolic diseases complicating childbirth (principal); Z37.0 Single live birth; Z3A.39 39 weeks gestation of pregnancy; O76 Abnormality in fetal heart rate and rhythm complicating labor and delivery; O70.0 First degree perineal laceration during delivery; O71.82 Other specified trauma to perineum and vulva; Z79.890 Hormone replacement therapy; Z28.310 Unvaccinated for COVID-19
CPT/HCPCS: 36415; 85025; 86780; 86850; 86900; 86901

== ENCOUNTER 2022-11-12 05:40 | Outpatient (CLI) | payer MEDICAID ==
[~2022-11-12] VITALS: Ht 162.5 cm; Wt 52.3 kg
[~2022-11-12 05:40] MED LIST changes: +Naproxen PO
[2022-11-13] MEDS ORDERED: LEVO150C4 PO (11:13)
== END 2022-11-13 11:19 | disposition home or self-care (01) ==
LOC: PREOP 05:40
PROVIDERS: ATTEND Surgery
DX: Z01.818 Encounter for other preprocedural examination (principal)

== ENCOUNTER 2022-11-19 08:01 | Day surgery (SDC) | payer MEDICAID ==
[2022-11-19] VITALS (8 sets, daily range): BP systolic 89–106; BP diastolic 45–68
[~2022-11-19] VITALS: Ht 162.5 cm; Wt 52.3 kg
[~2022-11-19 08:01] MED LIST changes: +LEVO150C4 PO
[2022-11-19] MEDS ORDERED: LACTATED RINGERS 1,000 ML IV PRN (08:15)
[2022-11-19] MEDS ORDERED: CLINDAMYCIN 600 MG/50 ML IVPB 50 ML IV ONE (08:15)
[2022-11-19] MEDS ORDERED: PROPOFOL INJECTION 50 ML IV ONE (08:43)
[2022-11-19] MEDS ORDERED: MIDAZOLAM 2 MG/2 ML (VERSED) VIAL ONE (08:44)
[2022-11-19] MEDS ORDERED: fentaNYL INJ 100 MCG/2 ML AMP ONE (08:44)
--- NOTE | 2022-11-19 09:26 | Progress Note-Pre Operative ---
Pre-Operative Progress Note Date of Available H&P: November 04, 2022 Date H&P Reviewed: November 19, 2022 Time H&P Reviewed: 09:25 History & Physical: H&P Reviewed, Patient Examed, No changes noted Pre-Operative Diagnosis: Right thumb mass NICOLE BRISENO DO November 19, 2022 09:26
[2022-11-19] MEDS ORDERED: NS (IVPB) 50 ML ONE (09:27)
[2022-11-19] MEDS ORDERED: ceFAZolin INJECTION 1,000 MG ONE (09:27)
[2022-11-19] MEDS ORDERED: BUP/EPI 0.5% 1:200,000 (SENSORCAINE) 30 ML VIAL ONE (09:29)
[2022-11-19] MEDS ORDERED: LORA10TA76 PO (09:40)
[2022-11-19] MEDS ORDERED: BUP/EPI 0.5% 1:200,000 (SENSORCAINE) 30 ML VIAL INJ ONE (10:55)
[2022-11-19] MEDS ORDERED: ONDANSETRON 4 MG/2 ML (SDV) Z0FRAN ONE (10:56)
--- NOTE | 2022-11-19 11:02 | Progress Note-Post Operative ---
Post-Operative Progess Note Surgeon (s)/Deckhand Fishing Vessel (s) Surgeon NICOLE BRISENO DO Deckhand Fishing Vessel: none Pre-Operative Diagnosis Right thumb mass Post-Operative Diagnosis same pending path Procedure & Operative Findings Date of Procedure 11/19/22 Procedure Performed/Findings Excision of right thumb mass, appx 2cm incision - mass just under fascia Anesthesia Type IV sedation by CUT PRESS OPERATOR Estimated Blood Loss Estimated blood loss (mL): scant Specimens/Packing Specimens Removed right thumb mass, appx 1cm Packin NICOLE BRISENO DO November 19, 2022 11:02
--- NOTE | 2022-11-19 11:03 | Discharge Inst-Surgical ---
Discharge Inst-Surgical Depart Medication/Instructions New, Converted or Re-Newed RX: Other (use home meds) Patient Instructions Follow up Appt: Make appointment for 1 week. [phone] Instructions: No lifting greater than 20 pounds. No strenuous activity. May shower in 24 hours, no tub bath or soaking. Use incentive spirometer at home as directed. No Smoking Skin/Wound Care: May remove bandages in am. You need to leave the stitches in place and come to office to have them removed. Symptoms to Report: Appetite Changes, Extremity Discoloration, Numbness/Tingling, Swelling Increased, Bleeding Excessive, Eyesight Changes, Pain Increased, Urine Color Change, Constipation(Persistent), Fever over 101 degree F, Pain/Pressure in chest, Urinating Difficulty, Cough Up/Vomit Blood, Heart Beat Irreg/Pounding, Pain/Pressure in jaw, Cramps in feet or legs, Lightheadedness, Pain/Pressure in shoulder, Diarrhea(Persistent), Memory Changes Suddenly, Questions/Concerns, Weight gain consecutive days, Dizziness/Fainting, Nausea/Vomiting, Shortness of Breath, Weight gain over 2 pounds If questions or concerns contact your physician Or seek help at emergency department. Activity Activity as Tolerated: Yes Activity Instructions: Avoid Stress to Incision Driving Instructions: You May Drive Diet Discharge Diet: No Restrictions Diet After 24 Hours: Clear Liquid if Nauseous If Any Problems/Questions/Issu: Contact Your Physician, Go to Emergency Room Skin/Wound Care Infection Signs and Symptoms: Increased Redness, Foul Odor of Wound, Increased Drainage, Skin Itchy or Has a Rash, Increased Swelling, Temperature Above 101 F Bathing Instructions: Shower Stitches/[place]/Dermabond Dis: Care of Stitches NICOLE BRISENO DO November 19, 2022 11:03
--- NOTE | 2022-11-19 17:24 | OPERATIVE REPORT ---
DATE OF SERVICE: 11/19/2022 PREOPERATIVE DIAGNOSIS: Right thumb mass. POSTOPERATIVE DIAGNOSIS: Right thumb mass, pending pathology. PROCEDURE: Excision of right thumb mass, approximately 2 cm incision, mass was just under the fascia. SURGEON: Ismael Reyes DO PUBLIC SERVICE ADMINISTRATOR: None. ANESTHESIA: IV sedation by WAVE GUIDE ASSEMBLER as well as some local finger block. BLOOD LOSS: Scant. FLUIDS: Per anesthesia. SPECIMENS: Right thumb mass approximately 1 cm. DESCRIPTION OF PROCEDURE: After informed consent was obtained, the patient was brought to the operating room and placed on the table in supine position. She was sterilely prepped and draped in normal fashion. I then performed a ring block on the right thumb and then the mass was on technically the lateral aspect of the thumb closer to the first finger. I also injected over this and made an incision with #15 blade about 2 cm long, carried down through the skin into subcutaneous tissue, then gently spreading the subcutaneous tissue, went down, there was a little bit of fascia, I had to cut this and then able to slowly spread and get this mass out. The mass popped out, measured about a centimeter, able to remove this with the Bovie cautery. Once this was removed, passed off table, obtained hemostasis using Bovie electrocautery and then elected to close the skin with 3-0 nylon 3 interrupted stitches. Area was cleaned and dried, dressing placed. The patient tolerated the procedure. Sponge, instrument and needle count correct at the end of the case. Job ID: [id number] DocumentID: [id number] Dictated Date: 11/19/2022 11:02:18 Chicken Boner Date: 11/19/2022 17:21:00 Dictated By: ISMAEL REYES DO
== END 2022-11-19 12:40 | disposition home or self-care (01) ==
LOC: SDC 08:01
PROVIDERS: ATTEND Surgery
DX: D48.1 Neoplasm of uncertain behavior of connective and other soft tissue (principal); Z87.891 Personal history of nicotine dependence; Z28.310 Unvaccinated for COVID-19
CPT/HCPCS: 84703; 87081